=== PATIENT | female | born 1980 | race Caucasian/White ===

== ENCOUNTER 2017-02-04 11:28 | Emergency (ER) | payer OTHER ==
[~2017-02-04] VITALS: Ht 157.5 cm; Wt 55.8 kg
[2017-02-04 11:32] VITALS: BP 148/96; PULSE 100; RESP 15; TEMP 98.6; O2SAT 99
--- NOTE | 2017-02-04 11:40 | PD ---
HPI Chief Complaint: Wound/Suture/Staple Re-Check Time Seen by Provider: 11:40 Travel History International Travel<30 days: No Contact w/Intl Traveler<30days: No Traveled to known affect area: No History of Present Illness HPI 37-year-old female just emergency Department with follow-up laceration to the right lateral palm. Patient states she cut her hand on a piece of glass in a door that she purposely broke as she was locked out. Patient was seen in a hospital down in the [place] area 9 days ago. Patient here for a wound check and suture removal. Patient states she has motion of the pinky finger, but it is numb from the laceration to the tip. She has no other complaints. She's had no drainage or signs of infection. She is up-to-date on her tetanus. Patient recently moved here from [facility]. There are [address] She has no known drug allergies. PFSH Past Medical History ?: Not LMP: 01/20/17 Social History Alcohol Use: No Tobacco Use: No Substance Use: No Allergies-Medications (Allergen,Severity, Reaction): Coded Allergies: No Known Allergies (Unverified , 02/04/17) Review of Systems Except as stated in HPI: all other systems reviewed are Neg General / Constitutional: No: Fever Eyes: No: Visual changes HENT: No: Headaches Cardiovascular: No: Chest Pain or Discomfort Respiratory: No: Shortness of Breath Gastrointestinal: No: Abdominal Pain Genitourinary: No: Dysuria Musculoskeletal: No: Pain Skin: No Rash Neurologic: No: Weakness Psychiatric: No: Depression Endocrine: No: Polydipsia Hematologic/Lymphatic: No: Easy Bruising Physical Exam Narrative GENERAL: Patient appears in no acute distress. SKIN: Warm and dry. Well healing laceration to the right lateral palm measuring approximately 7 cm total length. [address]. Wound appears well healed without dehiscence or drainage. No signs of cellulitis are noted. HEAD: Atraumatic. Normocephalic. EYES: Pupils equal and round. No scleral icterus. No injection or drainage. ENT: No nasal bleeding or discharge. Mucous membranes pink and moist. Pharynx is clear. NECK: Trachea midline. Neck is supple. CARDIOVASCULAR: Regular rate and rhythm. RESPIRATORY: No accessory muscle use. MUSCULOSKELETAL: Extremities without clubbing, cyanosis, or edema. No obvious deformities. Advertising Coordinator strength is somewhat limited secondary to discomfort in the right hand, specifically the right pinky finger. Patient states numbness in the pinky finger on the right hand. NEUROLOGICAL: Awake and alert. No obvious cranial nerve deficits. Motor grossly within normal limits. Five out of 5 muscle strength in the arms and legs. Normal speech. PSYCHIATRIC: Appropriate mood and affect; insight and judgment normal. Data Data Last Documented VS Vital Signs Date Time Temp Pulse Resp B/P Pulse Ox O2 Delivery O2 Flow Rate FiO2 02/04/17 11:49 20 02/04/17 11:32 98.6 100 148/96 99 MDM Medical Decision Making Medical Screen Exam Complete: Yes Emergency Medical Condition: Yes Differential Diagnosis Right hand laceration. Nerve injury. Wound check. Suture removal. Narrative Course Patient is medically stable at time of exam. All sutures are removed without difficulty. Patient given hand surgeon information for follow-up. Wound instructions are reviewed. Diagnosis Primary Impression: Laceration of right hand Qualified Code: S61.411D - Laceration of right hand without foreign body, subsequent encounter Referrals: Aishwarya Dumont MD call for appointment Patient Instructions: General Instructions, Laceration (ED) Additional Instructions: All sutures are removed without difficulty. Patient given hand surgeon information for follow-up. Wound instructions are reviewed. Med/Other Pt SpecificInfo: No Meds Exist/No RX given, Wound Care Disposition: 01 DISCHARGE HOME Condition: Stable Jacky Armas Feb 04, 2017 11:40
== END 2017-02-04 12:08 | disposition home or self-care (01) ==
LOC: EDSEX → PHEFT 11:28
DX: S61.411D Laceration without foreign body of right hand, subsequent encounter (principal); W25.XXXD Contact with sharp glass, subsequent encounter; Z48.02 Encounter for removal of sutures
CPT/HCPCS: 99281; 99282

== ENCOUNTER 2017-10-21 01:23 | Emergency (ER) | payer OTHER ==
[~2017-10-21] VITALS: Ht 157.5 cm; Wt 59.6 kg
[2017-10-21 01:37] VITALS: BP 123/76; PULSE 81; RESP 14; TEMP 98.1; O2SAT 98
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
[2017-10-21 03:26] VITALS: BP 118/68
== END 2017-10-21 03:27 | disposition home or self-care (01) ==
LOC: PHED 01:23
DX: S00.83XA Contusion of other part of head, initial encounter (principal); S16.1XXA Strain of muscle, fascia and tendon at neck level, initial encounter; S09.8XXA Other specified injuries of head, initial encounter; S20.211A Contusion of right front wall of thorax, initial encounter; F17.200 Nicotine dependence, unspecified, uncomplicated; V89.2XXA Person injured in unspecified motor-vehicle accident, traffic, initial encounter
CPT/HCPCS: 70450; 70486; 71101; 72125; 99285